=== PATIENT | male | born 1950 | race Caucasian/White ===

== ENCOUNTER → 2020-02-14 11:57 | Outpatient (CLI) | payer MEDICARE, SELFPAY ==
--- NOTE | ~2020-02-14 | XR_ITS ---
EXAMINATION: XR chest 2V EXAM DATE: 02/14/2020 12:15 INDICATION: R05 - Cough, worsening, chronic bronchitis TECHNIQUE: Frontal and lateral projections of the chest obtained and reviewed. Comparison is made to prior examination from 11/03/2017. FINDINGS: The lungs are clear. There are no pleural effusions. The cardiomediastinal silhouette is within normal limits. There is no pneumothorax suspected. The bones and soft tissues are unremarkab le. IMPRESSION: No acute cardiopulmonary findings. Reviewed, dictated and finalized at location B. [employer]PA[employer]
== END ==
PROVIDERS: Visit Provider Physician Assistant Medical
DX: R05 Cough (principal)
CPT/HCPCS: 71046

== ENCOUNTER 2020-02-18 12:50 | Outpatient (NON) | payer MEDICARE, SELFPAY ==
[2020-02-19 01:31] LABS: SARS-CoV-2 RNA PCR Positive
== END 2020-02-18 12:51 ==
PROVIDERS: PCP Family Medicine; Visit Provider Physician Assistant Medical
DX: U07.1 COVID-19 (principal)
CPT/HCPCS: 87635; C9803; U0003

== ENCOUNTER → 2021-01-23 09:34 | Outpatient (CLI) | payer MEDICARE, SELFPAY ==
[2021-01-23 16:22] LABS: SARS-CoV-2 RNA PCR Negative
== END ==
PROVIDERS: PCP Family Medicine; Visit Provider Family Medicine
DX: Z20.822 Contact with and (suspected) exposure to COVID-19 (principal); R05.9 Cough, unspecified; R52 Pain, unspecified; R09.81 Nasal congestion
CPT/HCPCS: C9803; U0003; U0005

== ENCOUNTER 2022-07-31 08:41 | Outpatient (CLI) | payer MEDICARE, SELFPAY ==
--- NOTE | ~2022-07-31 | XR_ITS ---
Clinical Indication: Chest tightness PA and lateral views of the chest: Comparison: 02/14/2020 Findings: The lungs are clear, without evidence of focal consolidation or pleural effusion. Cardiome diastinal silhouette is within normal limits. Bones and soft tissues are unremarkable. Impression: Normal chest. Reviewed, dictated and finalized at [facility]. Impression: Normal chest.
== END 2022-07-31 08:42 | disposition home or self-care (01) ==
LOC: ANHIMG 08:44
PROVIDERS: PCP Family Medicine; Visit Provider Family Medicine
DX: R06.09 Other forms of dyspnea (principal)
CPT/HCPCS: 71046

== ENCOUNTER 2022-08-30 07:42 | Outpatient (CLI) | payer MEDICARE, SELFPAY ==
--- NOTE | 2022-08-30 07:49 | ECHO_ITS ---
Patient Info Name: Abel Varner Age: 72 years : 1950 Gender: Male Ht: 71 in Wt: 180 lbs BSA: 2.03 m2 HR: 48 bpm BP: 133 / 78 mmHg Heart Rhythm: Bradycardia Technical Quality: Good Exam Date: 08/30/2022 8:18 AM Exam Location: [facility] Pulmonary Patient Status: Outpatient Admit Date: 08/30/2022 Staff Ordering Physician: Aniceto Cornelius MD Oracle Developer: Colette Spears RDCS Attending Provider: Aniceto Cornelius MD Referring Physician: Adryan PALMER; Exam Type: CA echo doppler color flow Study Info Indications R06.09 - Other forms of dyspnea Complete two-dimensional, color flow and Doppler transthoracic echocardiogram is performed. Summary 1. Complete two-dimensional, color flow and Doppler transthoracic echocardiogram is performed. 2. Left ventricular chamber dimension is normal. 3. Left ventricular systolic function is normal, estimated at 60-65%. 4. The left ventricular diastolic function is grade II diastolic dysfunction. 5. E/e' 9 is minimally elevated. 6. There is mild aortic valve sclerosis. 7. There is mild aortic valve regurgitation. 8. There is trace tricuspid valve regurgitation. 9. No pulmonary hypertension, estimated pulmonary arterial systolic pressure is 27 mmHg. 10. There is trace pulmonic regurgitation. Left Ventricle E/e' 9 is minimally elevated. Left ventricular chamber dimension is normal. Left ventricular systolic function is normal, estimated at 60-65%. The left ventricular diastolic function is grade II diastolic dysfunction. Right Ventricle Right ventricular systolic function is normal and with normal TAPSE 2.3 cm. Right ventricular chamber dimension is normal. Left Atria Left atrial chamber dimension is normal. Right Atria Right atrial chamber dimension is normal. Aortic Valve The aortic valve is trileaflet. There is mild aortic valve sclerosis. There is no aortic valve stenosis. There is mild aortic valve regurgitation. Pulmonic Valve There is trace pulmonic regurgitation. Mitral Valve There is no mitral valve stenosis. There is no mitral valve regurgitation. Tricuspid Valve There is trace tricuspid valve regurgitation. No pulmonary hypertension, estimated pulmonary arterial systolic pressure is 27 mmHg. Pericardium/Pleural There is no pericardial effusion. Inferior Vena Cava Normal inferior vena cava with >50% collapse upon inspiration consistent with normal right atrial pressure, 5 mmHg. Aorta The aortic root size at the sinus of Valsalva is normal. Left Ventricular Outflow Tract Name Value Normal LVOT 2D LVOT Diameter 2.0 cm LVOT Doppler LVOT Peak Gradient 3 mmHg LVOT Mean Gradient 1 mmHg LVOT VTI 22 cm LVOT VTI/AV VTI Ratio 0.6 LVOT Stroke Volume 73 ml LVOT CO 2.7 l/min LVOT CI 1.3 l/min/m2 Pulmonic Valve Name Value Normal RV
== END 2022-08-30 07:43 | disposition home or self-care (01) ==
PROVIDERS: PCP Family Medicine; Visit Provider Family Medicine
DX: R06.09 Other forms of dyspnea (principal); I35.1 Nonrheumatic aortic (valve) insufficiency
CPT/HCPCS: 93306

== ENCOUNTER 2022-09-26 11:35 | Emergency (ER) | payer MEDICARE, SELFPAY ==
--- NOTE | ~2022-09-26 | US_ITS ---
US soft tissue UE RT 09/26/2022 15:08 Indication: Right forearm bruising and swelling. Spider bite. Procedure: Limited ultrasound of the right forearm in the area of palpable and clinical concern Comparison: No prior studies for comparison. Findings: There is mild diffuse subcutaneous edema. No discrete walled off fluid collection to sugges t abscess. No abnormal solid or cystic masses. Impression: 1: No discrete abscess identified. Mild diffuse subcutaneous edema. Reviewed, dictated and finalized at location L. Impression: 1: No discrete abscess identified. Mild diffuse subcutaneous edema.
[2022-09-26 11:42] VITALS: BP 117/72; PULSE 71; RESP 18; O2SAT 98
[2022-09-26 11:49] VITALS: TEMP 36.6
[2022-09-26 14:52] LABS: Basophils Percent Auto 0.3 % (0.2-1.2); Eosinophils Absolute Auto 0.3 K/mm3 (0-0.3); Eosinophils Percent Auto 3.6 % (0-4.4); Hematocrit 46.6 % (42.0-52.0); Hemoglobin 15.1 g/dL (14.0-18.0); Immature Granulocyte Absolute 0.03 K/mm3 (0.00-0.031); Immature Granulocyte Percent A 0.4 % (0-0.5); Lymphocytes Absolute Auto 0.89 K/mm3 (0.9-3.2); Lymphocytes Percent Auto 12.2 % (18.3-44.2); Mean Corpuscular HGB Conc 32.4 g/dl (32-36); Mean Corpuscular Volume 95.7 fl (80-100); Mean Platelet Volume 9.2 fl (7.4-10.4); Monocytes Absolute Auto 0.5 K/mm3 (0.1-0.6); Monocytes Percent Auto 6.5 % (2.6-8.5); Neutrophils Absolute Auto 5.6 K/mm3 (1.3-6.7); Platelet Count Result 219 k/mm3 (150-375); Red Blood Count 4.87 M/mm3 (4.6-6.20); Red Cell Distribution Width 12.7 % (11.5-14.5); White Blood Count 7.3 K/mm3 (4.5-10.0)
--- NOTE | 2022-09-26 15:07 | ED.WOUNDLAC ---
HPI - Wound/Laceration General Chief Complaint: Wound/Laceration Stated Complaint: Spider bites Time Seen by Provider: 09/26/22 13:33 Source: patient Mode of arrival: ambulatory Limitations: no limitations History of Present Illness HPI narrative: Patient is a 72-year-old male who presents to the ED with report of a spider bite to his right mid forearm. Patient reports he was working on a house soffit yesterday and believes he was bitten by at least 1 brown recluse spider to his right mid forearm. He denies seeing any spiders or feeling a bite, he states he first just felt a area of burning pain to his right mid ventral forearm. He has since developed swelling and almost the appearance of bruising to the right forearm. He states he has been bitten by a brown recluse before and had similar sx's. He reports very mild nausea, denies vomiting, abdominal pain, fevers, drainage from the wound. Related Data Home Medications Medication Instructions Recorded Confirmed ascorbic acid (vitamin C) 1,000 mg 1 g PO DAILY 07/29/22 07/29/22 capsule coenzyme Q10 75 mg capsule (Ultra 75 mg PO DAILY 07/29/22 07/29/22 CoQ10) fluticasone propionate 50 1 spray intranasal DAILY 07/29/22 07/29/22 mcg/actuation nasal spray,suspension fpasqgat-lbo-tlriz acid 300 1 tablet PO DAILY 07/29/22 07/29/22 mcg-lycopene 600 mcg-lutein 300 mcg tablet (Centrum Silver Ultra Men's) omega 6-tgi-tix-fish oil 120 cap PO 07/29/22 07/29/22 mg-180 mg-500 mg capsule (Fish Oil) Allergies Allergy/AdvReac Type Severity Reaction Status Date / Time No Known Allergies Allergy Verified 09/26/22 11:47 Review of Systems Review of Systems: CONSTITUTIONAL: Denies fever, chills, or sweats. GASTROINTESTINAL: See HPI. SKIN: See HPI. MUSCULOSKELETAL: See HPI. NEUROLOGIC: Denies tingling, numbness, or weakness. All systems reviewed & are unremarkable except as noted in HPI and below PMFSH Past Medical History Medical History Adult BMI 27.0-27.9 kg/sq m Chest pain Dyspnea on exertion Erectile dysfunction Nasal congestion Skin lesion of scalp Family History Family History Father Hypertension Cerebrovascular accident Family history of lymphoma Mother Carcinoma of colon Family history of malignant neoplasm of breast in first degree relative Family history of malignant neoplasm of ovary Sibling No problems noted. Social History Social History Smoking status: Never smoker Second hand tobacco smoke exposure: No Alcohol intake: current Substance use: never Substance use type: does not use Living arrangements: alone Occupation/Education: retired Additional occupation/education comments: [employer] Gender identity (if verbalized by the patient): Male Exam Narrative: GENERAL: Well appearing, well-nourished, non-toxic, in no acute distress. HEAD: Normocephalic, atraumatic. NECK: Supple. No adenopathy, no masses. RESPIRATORY: Airway patent, respirations nonlabored. Clear to auscultation bilaterally, no rales, rhonchi, wheezing. CARDIOVASCULAR: Regular rate and rhythm without murmurs, rubs, or gallops. Radial pulses 2+ and equal bilaterally. MUSCULOSKELETAL: Moves all extremities. Strength/ROM intact without gross deformities. Full ROM of RUE. SKIN: Warm, dry. Area of swelling, redness, TTP to R mid ventral forearm. No fluctuance or induration appreciated. Small singular petechia in the center of the swollen region with surrounding serpiginous shaped ecchymosis with small areas of pale/blanching skin. No vesicles, drainage. No signs of necrosis. No sloughing or desquamation of skin. Small abrasions present over mid forearm. Mild lymphangitis extending up to the right mid upper arm. NEURO: A&O X3. Speech clear. Cranial nerves II-XII ben
[2022-09-26 15:22] LABS: Alanine Aminotransferase 24 U/L (6-50); Albumin Level 4.8 g/dL (3.5-5.1); Alkaline Phosphatase 63 U/L (38-126); Anion Gap 9 mmol/L (8-16); Aspartate Amino Transferase 39 U/L (17-59); Bilirubin,Total 1.3 mg/dL (0.2-1.3); Blood Urea Nitrogen 11 mg/dL (9-20); Calcium 9.4 mg/dL (8.4-10.2); Carbon Dioxide 28 mmol/L (22-30); Chloride 101 mmol/L (98-107); Estimated CRCL calculation 69 ml/min; Estimated Glomerular Filt Rate > 60; Glucose 88 mg/dL (65-110); Potassium 4.3 mmol/L (3.4-5.0); Sodium 138 mmol/L (137-145)
[2022-09-26] MEDS: ceFAZolin 1 GM/NS 50 ML 1 GM/50 ML BAG IVPB (16:45)
== END 2022-09-26 17:12 | disposition home or self-care (01) ==
PROVIDERS: Emergency Provider Physician Assistant; PCP Family Medicine
DX: L03.113 Cellulitis of right upper limb (principal)
CPT/HCPCS: 36415; 76882; 80053; 85025; 96365; 99284; J0690

== ENCOUNTER 2022-09-28 04:37 | Emergency (ER) | payer MEDICARE, SELFPAY ==
[2022-09-28 04:39] VITALS: BP 128/66; PULSE 54; RESP 18; TEMP 36.8; O2SAT 100
--- NOTE | 2022-09-28 05:12 | ED.GENADULT ---
HPI - General Adult General Chief complaint: Skin/Abscess/Foreign Body Stated complaint: cellutitis on antibiotic Time Seen by Provider: 09/28/22 04:58 History of Present Illness HPI narrative: Patient 72-year-old gentleman who presents the emergency department chief complaint of right forearm pain. The patient reports he was seen in the emergency department on after he had had what he believes to be is brown recluse bite. The patient states that he has had redness and swelling in the area and was started on Keflex. The patient states the area has become exquisitely painful and reports that the pain is not improved by anything. Patient states he was concerned that he was going into shock because of the pain Related Data Home Medications Medication Instructions Recorded Confirmed ascorbic acid (vitamin C) 1,000 mg 1 g PO DAILY 07/29/22 07/29/22 capsule coenzyme Q10 75 mg capsule (Ultra 75 mg PO DAILY 07/29/22 07/29/22 CoQ10) fluticasone propionate 50 1 spray intranasal DAILY 07/29/22 07/29/22 mcg/actuation nasal spray,suspension saqflnpq-lcx-nolod acid 300 1 tablet PO DAILY 07/29/22 07/29/22 mcg-lycopene 600 mcg-lutein 300 mcg tablet (Centrum Silver Ultra Men's) omega 7-uxr-msv-fish oil 120 cap PO 07/29/22 07/29/22 mg-180 mg-500 mg capsule (Fish Oil) Allergies Allergy/AdvReac Type Severity Reaction Status Date / Time No Known Allergies Allergy Verified 09/28/22 04:39 Review of Systems Review of Systems: A 10 system review of systems was completed on the patient and is negative except for what is stated in the HPI. Nursing and ancillary documentation was reviewed. [facility] Past Medical History Medical History Adult BMI 27.0-27.9 kg/sq m Chest pain Dyspnea on exertion Erectile dysfunction Nasal congestion Skin lesion of scalp Family History Family History Father Hypertension Cerebrovascular accident Family history of lymphoma Mother Carcinoma of colon Family history of malignant neoplasm of breast in first degree relative Family history of malignant neoplasm of ovary Sibling No problems noted. Social History Social History Smoking status: Never smoker Second hand tobacco smoke exposure: No Alcohol intake: current Substance use: never Substance use type: does not use Living arrangements: alone Occupation/Education: retired Additional occupation/education comments: [employer] Gender identity (if verbalized by the patient): Male Exam Narrative: GENERAL: Well-appearing, well-nourished, and in no acute distress. HEAD: Normocephalic, atraumatic. EYES: PERRLA and EOMI. ENT: Nares clear, no rhinorrhea or epistaxis. Mucous membranes moist. NECK: Supple. CHEST: Clear to auscultation. No respiratory distress. HEART: Regular rate and rhythm. No murmur heard. Normal peripheral pulses. ABDOMEN: Soft, nontender, nondistended, normal active bowel sounds. EXTREMITIES: Normal range of motion. No edema. SKIN: Warm, dry, there is redness present to the right forearm on the volar aspect. NEURO: No focal deficits. Alert and oriented x3. PSYCH: Normal mood and affect. Course Vital Signs Vital signs: Vital Signs Temperature 36.8 C 09/28/22 04:39 Pulse Rate 54 L 09/28/22 04:39 Respiratory Rate 18 09/28/22 04:39 Blood Pressure 128/66 09/28/22 04:39 Pulse Oximetry 100 09/28/22 04:39 Oxygen Delivery Room Air 09/28/22 04:39 Temperature 36.8 C 09/28/22 04:39 Pulse Rate 54 L 09/28/22 04:39 Respiratory Rate 18 09/28/22 04:39 Blood Pressure 128/66 09/28/22 04:39 Pulse Oximetry 100 09/28/22 04:39 Oxygen Delivery Room Air 09/28/22 04:39 Medical Decision Making MDM Narrative Medical decision making narrat
[2022-09-28] MEDS: CLINDAMYCIN 600 MG/D5W 50 ML 600 MG/50 ML PIGGYBACK 100 MG IVPB (05:38)
[2022-09-28] MEDS: MORPHINE SULFATE (*CRX) 4 MG/ML INJ IV PUSH (05:38)
[2022-09-28] MEDS: SODIUM CHLORIDE 0.9% IV 1,000 ML 999 ML IV CONT (05:38)
[2022-09-28 05:47] LABS: Basophils Percent Auto 0.2 % (0.2-1.2); Eosinophils Absolute Auto 0.5 K/mm3 (0-0.3); Eosinophils Percent Auto 7.8 % (0-4.4); Hematocrit 44.3 % (42.0-52.0); Hemoglobin 14.4 g/dL (14.0-18.0); Immature Granulocyte Absolute 0.02 K/mm3 (0.00-0.031); Immature Granulocyte Percent A 0.3 % (0-0.5); Lymphocytes Absolute Auto 0.93 K/mm3 (0.9-3.2); Lymphocytes Percent Auto 14.2 % (18.3-44.2); Mean Corpuscular HGB Conc 32.5 g/dl (32-36); Mean Corpuscular Hemoglobin 30.9 pg (26-34); Mean Corpuscular Volume 95.1 fl (80-100); Mean Platelet Volume 9.2 fl (7.4-10.4); Monocytes Absolute Auto 0.6 K/mm3 (0.1-0.6); Monocytes Percent Auto 8.4 % (2.6-8.5); Neutrophils Absolute Auto 4.5 K/mm3 (1.3-6.7); Neutrophils Percent Auto 69.1 % (45.5-73.1); Platelet Count Result 216 k/mm3 (150-375); Red Blood Count 4.66 M/mm3 (4.6-6.20); Red Cell Distribution Width 12.6 % (11.5-14.5); White Blood Count 6.5 K/mm3 (4.5-10.0)
[2022-09-28 06:06] LABS: Alanine Aminotransferase 21 U/L (6-50); Albumin Level 4.3 g/dL (3.5-5.1); Alkaline Phosphatase 66 U/L (38-126); Anion Gap 6 mmol/L (8-16); Aspartate Amino Transferase 26 U/L (17-59); Bilirubin,Total 0.7 mg/dL (0.2-1.3); Blood Urea Nitrogen 11 mg/dL (9-20); Calcium 9.1 mg/dL (8.4-10.2); Carbon Dioxide 31 mmol/L (22-30); Chloride 100 mmol/L (98-107); Estimated CRCL calculation 63 ml/min; Estimated Glomerular Filt Rate > 60; Glucose 90 mg/dL (65-110); Potassium 4.4 mmol/L (3.4-5.0); Sodium 137 mmol/L (137-145)
[2022-09-28 06:21] LABS: Procalcitonin 0.1 ng/mL
[2022-09-28] MEDS: KETOROLAC 30 MG/ML VIAL (*BKC) 15 MG IV PUSH (06:41)
[2022-09-28 06:54] VITALS: BP 142/80; PULSE 54; RESP 18; O2SAT 100
== END 2022-09-28 06:54 | disposition home or self-care (01) ==
PROVIDERS: Emergency Provider Emergency Medicine; PCP Family Medicine
DX: L03.113 Cellulitis of right upper limb (principal)
CPT/HCPCS: 36415; 80053; 84145; 85025; 96365; 96375; 99284; J1885; J2270; J7030

== ENCOUNTER 2022-10-01 07:48 | Observation (INO) | payer MEDICARE, SELFPAY ==
[2022-10-01] VITALS (22 sets, daily range): BP systolic 105–140; BP diastolic 59–86; PULSE 42–61; RESP 12–23; TEMP 36.6–37; O2SAT 85–100; BMI 26.9
--- NOTE | ~2022-10-01 | US_ITS ---
US soft tissue UE RT 10/01/2022 10:21 Indication: Concern for soft tissue abscess Procedure: High-resolution ultrasound of the right forearm in the area of palpable concern Comparison: Ultrasound dated 09/26/2022 Findings: There is improved mild subcutaneous edema compared with prior study. No discrete walled off fluid collection to suggest abscess. Impression: 1: No evidence for abscess. Reviewed, dictated and finalized at location L. Impression: 1: No evidence for abscess.
--- NOTE | 2022-10-01 09:33 | ED.WOUNDLAC ---
HPI - Wound/Laceration General Chief Complaint: Wound/Laceration Stated Complaint: wound right arm Time Seen by Provider: 10/01/22 09:01 History of Present Illness HPI narrative: 72-year-old male reports for evaluation for a potential spider bite to his right extremity with surrounding cellulitis extending up near the axilla. Patient was seen in the ED on 09/26 for a reported spider bite that occurred the day prior, arm pain, and mild nausea. He had an ultrasound obtained at that time which showed no discrete abscess identified, mild diffuse subcutaneous edema. He received 1 dose of IV cefazolin and was started on Keflex outpatient, advised to follow-up with PCP. He then returned 2 days later on 09/26 with worsening pain and no improvement in cellulitis. He was given a dose of IV clindamycin and sent home with p.o. clindamycin, advised to follow-up with PCP. Patient reports today with worsening pain and cellulitis to his axilla. He notes that the initial lesion on the ventral aspect of his forearm has remained stable other than increased surrounding erythema. He does note that he woke up with blood on his sheets the other morning and has noticed greasy drainage from the wound. States this morning his friends advised him to come to the ED after he developed symptoms of shock which included dizziness, lightheadedness, nausea. He denies known fevers, body aches or chills, cough or congestion, chest pain or shortness of breath, abdominal pain, nausea or vomiting, diarrhea. Related Data Home Medications Medication Instructions Recorded Confirmed ascorbic acid (vitamin C) 1,000 mg 1 g PO DAILY 07/29/22 10/01/22 capsule coenzyme Q10 75 mg capsule (Ultra 75 mg PO DAILY 07/29/22 10/01/22 CoQ10) fluticasone propionate 50 1 spray intranasal DAILY 07/29/22 10/01/22 mcg/actuation nasal spray,suspension qprgrind-izr-ddkiu acid 300 1 tablet PO DAILY 07/29/22 10/01/22 mcg-lycopene 600 mcg-lutein 300 mcg tablet (Centrum Silver Ultra Men's) omega 1-slb-pyv-fish oil 120 1 cap PO DAILY 07/29/22 10/01/22 mg-180 mg-500 mg capsule (Fish Oil) melatonin 12 mg tablet 12 mg PO HS 10/01/22 10/01/22 Allergies Allergy/AdvReac Type Severity Reaction Status Date / Time No Known Allergies Allergy Verified 10/01/22 13:41 Review of Systems Review of Systems: CONSTITUTIONAL: Denies fever, chills EYES: Denies visual changes, redness, or discharge. ENT: Denies rhinorrhea, congestion, sore throat, or otalgia. CARDIOVASCULAR: Denies chest pain, palpitations, or edema. RESPIRATORY: Denies cough or dyspnea. GASTROINTESTINAL: Denies abdominal pain, vomiting, or diarrhea. GENITOURINARY: Denies dysuria or hematuria. SKIN: See HPI MUSCULOSKELETAL: Denies back pain, joint pain, or myalgia. NEUROLOGIC: Denies headache, numbness, dizziness, or weakness. PSYCHIATRIC: Denies anxiety or depression. [facility] Past Medical History Medical History (Updated 10/01/22 @ 15:08 by Chasidy Issa NP) Adult BMI 27.0-27.9 kg/sq m Cataracts, bilateral Chest pain Chronic bronchitis Diastolic dysfunction Dyspnea on exertion Erectile dysfunction Ingrowing toenail with infection Mixed hyperlipidemia Nasal congestion Seasonal allergies Skin lesion of scalp Wart viral Surgical History Surgical History (Updated 10/01/22 @ 14:59 by Chasidy Issa NP) History of shoulder surgery Bilateral shoulder surgery Family History Family History Father Hypertension Cerebrovascular accident Family history of lymphoma Mother Carcinoma of colon Family history of malignant neoplasm of breast in first degree relative Family history of malignant neoplasm of ovary Sibling No problems noted. Social History Social History (Updated 10/01/22 @ 15:01 by Chasidy Issa NP) Social History: The patient lives home alone. He is single. He has no children. He tells me he works as
[2022-10-01 10:10] LABS: Basophils Percent Auto 0.4 % (0.2-1.2); Eosinophils Absolute Auto 0.7 K/mm3 (0-0.3); Eosinophils Percent Auto 6.5 % (0-4.4); Hematocrit 44.1 % (42.0-52.0); Hemoglobin 13.8 g/dL (14.0-18.0); Immature Granulocyte Absolute 0.04 K/mm3 (0.00-0.031); Immature Granulocyte Percent A 0.4 % (0-0.5); Lymphocytes Absolute Auto 1.47 K/mm3 (0.9-3.2); Lymphocytes Percent Auto 14.2 % (18.3-44.2); Mean Corpuscular HGB Conc 31.3 g/dl (32-36); Mean Corpuscular Hemoglobin 31.1 pg (26-34); Mean Corpuscular Volume 99.3 fl (80-100); Mean Platelet Volume 9.4 fl (7.4-10.4); Monocytes Absolute Auto 0.8 K/mm3 (0.1-0.6); Monocytes Percent Auto 7.7 % (2.6-8.5); Neutrophils Absolute Auto 7.4 K/mm3 (1.3-6.7); Neutrophils Percent Auto 70.8 % (45.5-73.1); Platelet Count Result 217 k/mm3 (150-375); Red Blood Count 4.44 M/mm3 (4.6-6.20); Red Cell Distribution Width 12.6 % (11.5-14.5); White Blood Count 10.4 K/mm3 (4.5-10.0)
[2022-10-01 10:18] LABS: Alanine Aminotransferase 19 U/L (6-50); Albumin Level 4.2 g/dL (3.5-5.1); Alkaline Phosphatase 59 U/L (38-126); Anion Gap 4 mmol/L (8-16); Aspartate Amino Transferase 26 U/L (17-59); Bilirubin,Total 0.6 mg/dL (0.2-1.3); Blood Urea Nitrogen 10 mg/dL (9-20); CRP 5.9 mg/dL (<1.0); Calcium 9.1 mg/dL (8.4-10.2); Carbon Dioxide 31 mmol/L (22-30); Chloride 101 mmol/L (98-107); Estimated CRCL calculation 77 ml/min; Estimated Glomerular Filt Rate > 60; Glucose 89 mg/dL (65-110); Potassium 4.6 mmol/L (3.4-5.0); Sodium 136 mmol/L (137-145)
[2022-10-01] MEDS: SODIUM CHLORIDE 0.9% IV 1,000 ML 999 ML IV CONT (10:21)
[2022-10-01] MEDS: HYDROcodone/acetaminophen (*CRX) 5-325 MG TABLET 1 TAB PO ×3 (10:23→21:12)
[2022-10-01 11:45] LABS: Erythrocyte Sedimentation Rate 72 mm/hr (0-20)
--- NOTE | 2022-10-01 12:36 | PM.IMHP ---
H&P: HPI History of Present Illness Date/Time: 10/01/22 12:36 Chief Complaint: right arm infection Narrative: This is a 72-year-old male patient who is fairly healthy. The patient was working outside on a 09/26/2022 when the he was working on the roof soft at outside when he noticed that he had gotten bit at least 3 times in he is pretty sure that it is a spider bite. The patient came to the emergency room here on 09/26/2022 for the reported spider bite that occurred that day the patient complained of redness and tenderness and edema that day. The patient received 1 dose of IV cephalexin and was started on Keflex to be taken outpatient. The patient was advised to follow-up with his primary care doctor. He then returned back here on 09/28/22 for the same chief complaint of right forearm pain. The patient stated that he did not have any relief of his symptoms when he took his Keflex. The patient stated that he was taking his per prescribed Keflex as ordered. He was then given IV clindamycin and sent home on p.o. clindamycin. The patient then returned to the emergency room today because his symptoms were worsening. He has redness swelling and tenderness. The redness is from his right forearm up to his axillary area. The patient stated that he had no drainage but he told the ER provider that he had a greasy drainage from the wound. He also has an area that is approximately 2 x 4 that appears darker than the rest of the arm. The patient stated that elevation does help it some. Patient stated that he was given pain pills which he would take when needed and that he took his last pain pill today. He stated that this morning he woke up and was out with some friends when he developed some dizziness, lightheadedness and nausea. He denied any fever chills or any body aches. vomiting or diarrhea today. His friends encouraged him to come to the emergency room today. His white count is noted to be 10.4. Sodium was 136. C reactive protein 5.9. The patient was given IV fluids, [place] and vancomycin. The patient is being admitted to observation status on the date of service of 10/01/2022. Review of Systems Review of Systems: All systems reviewed & are unremarkable except as noted in HPI and below Constitutional: Constitutional: Reports as per HPI and Reports no additional constitutional complaints Eyes: Eyes: Reports as per HPI and Reports no additional eye complaints ENT: Reports system reviewed and no additional complaints, except as documented and Reports Normal hearing present Cardiovascular: Cardiovascular: Reports no additional cardiovascular complaints Respiratory: Respiratory: Reports no additional respiratory complaints and Reports no additional respiratory complaints Gastrointestinal: Gastrointestinal: Reports as per HPI and Reports no additional gastrointestinal complaints Musculoskeletal: Musculoskeletal: Reports no additional musculoskeletal complaints Integumentary/Breasts: Skin/Breast: Reports system reviewed and no additional complaints, except as docu and Reports as per HPI Neurologic: Reports system reviewed and no additional complaints, except as documented, Reports as per HPI and Reports Normal hearing present Psychiatric: Psychiatric: Reports no additional psychiatric complaints and Reports as per HPI Endocrine: Endocrine: Reports no additional endocrine complaints Hematologic/Lymphatic: Hematologic/Lymphatic: Reports no additional hematologic/lymphatic complaints Allergic/Immunologic: Allergic/Immunologic: Reports no additional allergic/immunologic complaints [facility] Past Medical History Medical History (Updated 10/01/22 @ 15:08 by Chasidy Issa NP) Adult BMI 27.0-27.9 kg/sq m Cataracts, bilateral Chest pain Chronic bronchitis Diastolic dysfunction Dyspnea on exertion Erectile dysfunction Ingrowing toenail with infection Mixed hyperlipidemia Nasal congestion Seasonal allergies Skin lesion of scalp Wart vir
--- NOTE | 2022-10-01 13:28 | ADMGEN ---
This patient, Abel Varner, was admitted to [facility] Surg Room 304-02. Patient/family oriented to hospital policies and general routines including ID bracelet, bed and alarms, visiting hours, pain management, procedures, bathroom and other care routines, personal items, smoking policy, room service/diet, and visiting hours. Information on how to activate the Rapid Response Team has been discussed. Patient/Family are encouraged to report perceived risks to care and to ask questions if they do not understand what they are told or what they should do. report recieved from Linda in ER
[2022-10-01] MEDS: MELATONIN 3 MG TABLET 12 MG PO (21:13)
[2022-10-01] MEDS: KETOROLAC 15 MG/ML VIAL (*BKC) IV PUSH (22:19)
[2022-10-01] MEDS: HYDROmorphone HCL INJ (*CRX) 1 MG/ML SYR 0.5 MG IV PUSH (23:34)
[2022-10-02] MEDS: HYDROcodone/acetaminophen (*CRX) 5-325 MG TABLET 1 TAB PO ×4 (04:08→20:35)
[2022-10-02 06:00] VITALS: BP 123/66; PULSE 51; RESP 16; TEMP 37; O2SAT 99
[2022-10-02 07:13] LABS: Basophils Absolute Auto 0.1 K/mm3 (0.0-0.1); Basophils Percent Auto 0.7 % (0.2-1.2); Eosinophils Absolute Auto 0.8 K/mm3 (0-0.3); Eosinophils Percent Auto 11.5 % (0-4.4); Hematocrit 40.1 % (42.0-52.0); Hemoglobin 12.8 g/dL (14.0-18.0); Immature Granulocyte Absolute 0.02 K/mm3 (0.00-0.031); Immature Granulocyte Percent A 0.3 % (0-0.5); Lymphocytes Absolute Auto 1.68 K/mm3 (0.9-3.2); Lymphocytes Percent Auto 23.6 % (18.3-44.2); Mean Corpuscular HGB Conc 31.9 g/dl (32-36); Mean Corpuscular Hemoglobin 30.8 pg (26-34); Mean Corpuscular Volume 96.4 fl (80-100); Mean Platelet Volume 9.2 fl (7.4-10.4); Monocytes Absolute Auto 0.6 K/mm3 (0.1-0.6); Monocytes Percent Auto 8.7 % (2.6-8.5); Neutrophils Absolute Auto 3.9 K/mm3 (1.3-6.7); Neutrophils Percent Auto 55.2 % (45.5-73.1); Platelet Count Result 223 k/mm3 (150-375); Red Blood Count 4.16 M/mm3 (4.6-6.20); Red Cell Distribution Width 12.5 % (11.5-14.5); White Blood Count 7.1 K/mm3 (4.5-10.0)
[2022-10-02 07:26] LABS: Alanine Aminotransferase 18 U/L (6-50); Albumin Level 3.6 g/dL (3.5-5.1); Alkaline Phosphatase 51 U/L (38-126); Anion Gap 5 mmol/L (8-16); Aspartate Amino Transferase 20 U/L (17-59); Bilirubin,Total 0.4 mg/dL (0.2-1.3); Blood Urea Nitrogen 8 mg/dL (9-20); CRP 3.2 mg/dL (<1.0); Calcium 8.7 mg/dL (8.4-10.2); Carbon Dioxide 32 mmol/L (22-30); Chloride 100 mmol/L (98-107); Cholesterol 158 mg/dL (0-200); Estimated CRCL calculation 69 ml/min; Estimated Glomerular Filt Rate > 60; Glucose 81 mg/dL (65-110); HDL Direct 44 mg/dL; Magnesium 2.4 mg/dL (1.6-2.3); Potassium 4.1 mmol/L (3.4-5.0); Sodium 137 mmol/L (137-145); Triglycerides 89 mg/dL (<150)
[2022-10-02 07:35] LABS: LDL Cholesterol Direct 84 mg/dL
[2022-10-02] MEDS: OPTI-GEN TAB 1 TABLET PO (08:09)
[2022-10-02] MEDS: ASCORBIC ACID 500 MG TABLET 1000 MG PO (08:09)
[2022-10-02] MEDS: FLUTICASONE PROPIONATE 0.05% NA SPR 16 GM BTL (*BKC) 1 SPRAY NASAL (08:09)
[2022-10-02] MEDS: OMEGA 3 POLYUNSAT FATTY ACIDS 1 GM CAP PO (08:09)
[2022-10-02 09:07] LABS: Free T4 Free Thyroxine Reflex 1.24 ng/dL (0.78-2.19)
[2022-10-02 10:12] LABS: Total Triiodothyronine (T3) 1.34 NG/ML (0.97-1.69)
--- NOTE | 2022-10-02 10:31 | PM.IMPN ---
Progress Note: A&P Assessment and Plan (1) Cellulitis: Code(s): L03.90 - Cellulitis, unspecified Status: Acute Assessment and Plan: Patient presented to the ED on 09/26 after sustaining a spider bite to the right forearm. Right forearm US showing no abscess but mild difuse edema. He was tried on Keflex but his symptoms worsened so he returned to the ED on 09/28 and was given clindamycin. He continued to have worsening symptoms with tracking erythema so returns to ED again on 10/01. Repeat right forearm US showing no evidence of abscess. His white count was 10.4. CRP 5.9. He was started on Vancomycin. BCx are pending. Recommended patient stay in the hospital one ore night to continue IV abx. If this continues to improve, then home tomorrow to complete his Clindamycin regiment. Explained that this should heal over time but that there is still a possibility that the forearm lesion may become necrotic. He voices understanding and that this may need debridement later but would wait to see what tissue is viable before opening this area up especially since he is nontoxic and evidence of acute infection are waning. Continue to elevate the right forearm. Continue Vancomycin (2) Mixed hyperlipidemia: Code(s): E78.2 - Mixed hyperlipidemia Status: Acute Assessment and Plan: The patient only takes [id number] fish oil. TG 89, TC 158, LDL 84 and HDl 44. (3) Skin lesion of scalp: Code(s): L98.9 - Disorder of the skin and subcutaneous tissue, unspecified Status: Acute Assessment and Plan: The patient has an dried eschar to the top of his head without surrounding redness. Follow Plan DVT Prophylaxis - SCDs Code status - Full Subjective Date/time seen: 10/02/22 10:31 Interval history: 72yo male with chronic bronchitis here for persistent right arm pain, erythema and edema related to a spider bite on 09/26/22. Assuming care. Chart reviewed. Patient is noted that the pain is improved today. He is also decreasing edema to the right arm. He was having erythema tracking up to his axilla into his flank but this has improved. No numbness or tingling in his right fingers. No weakness in his right hand but did have trouble gripping because of pain. He does complain of small amount of numbness in the distal right forearm. Exam Narrative: AF 98.6 123/66 51 16 99% ra Gen - NARD Chest - CTA bilaterally, nml RR CV - RRR S1/S2 Abd - Soft, NT/ND, Positive BS Ext - No pedal edema Psych - Nml mood and affect Skin - right mid medial forearm approx 10cm oval purplish non-blanchable patch with induration but no fluctuance. No surrounding erythema. No erythema tracking into the right upper arm. No axillary lymphadenopathy. No erythema to the right axillary or flank area. Dried eschar to crown without erythema. Objective Data Vital Signs Vital Signs: Vital Signs - 24 hr 10/01/22 10:45 10/01/22 10:46 10/01/22 11:01 Temperature Pulse Rate 45 L 45 L 53 L Respiratory Rate 13 15 14 Blood Pressure 120/61 140/63 Pulse Oximetry 99 10/01/22 11:03 10/01/22 11:52 10/01/22 14:00 Temperature 97.9 F Pulse Rate 53 L 53 L 49 L Respiratory Rate 16 16 14 Blood Pressure 129/70 124/64 Pulse Oximetry 100 100 10/01/22 21:14 10/02/22 06:00 Temperature 98.6 F 98.6 F Pulse Rate 55 L 51 L Respiratory Rate 18 16 Blood Pressure 105/61 123/66 Pulse Oximetry 97 99 Intake/Output Intake/Output: Intake & Output 09/29/22 09/30/22 10/01/22 10/02/22 23:59 23:59 23:59 23:59 Intake Total 2110 1140 Balance 2110 1140 Meds/Results Medications: Active Medications Generic Name Dose Route Start Last Admin Trade Name Freq PRN Reason Stop Dose Admin Hydrocodone Bitart/Acetaminophen 1 tab 10/01/22 10:59 10/02/22 04:08 Hydrocodone/Acetaminophen (*Crx) 5-325 Mg Tablet PO 1 tab Q4H PRN Administration Pain Rated 4-6 Ascorbic Acid 1,000 mg
--- NOTE | 2022-10-02 12:50 | PCCCNOTE ---
On 10/02/22, the student, [Leah Miller], provided care and completed [facility] documentation on this patient. I have reviewed the student's documentation and agree with the findings.
[2022-10-02] MEDS: HYDROmorphone HCL INJ (*CRX) 1 MG/ML SYR 0.5 MG IV PUSH (13:04)
[2022-10-02 14:00] VITALS: BP 117/70; PULSE 50; RESP 18; TEMP 36.4; O2SAT 97
[2022-10-02 20:00] VITALS: PULSE 57; RESP 14; O2SAT 100
[2022-10-02] MEDS: MELATONIN 3 MG TABLET 12 MG PO (20:35)
[2022-10-02 21:43] VITALS: BP 129/69; PULSE 57; RESP 14; TEMP 37; O2SAT 100
[2022-10-03] MEDS: HYDROmorphone HCL INJ (*CRX) 1 MG/ML SYR 0.5 MG IV PUSH (02:00)
[2022-10-03 05:43] VITALS: BP 115/60; PULSE 62; RESP 14; TEMP 37.1; O2SAT 98
[2022-10-03 06:53] LABS: Estimated CRCL calculation 77 ml/min; Estimated Glomerular Filt Rate > 60
[2022-10-03] MEDS: ASCORBIC ACID 500 MG TABLET 1000 MG PO (08:37)
[2022-10-03] MEDS: FLUTICASONE PROPIONATE 0.05% NA SPR 16 GM BTL (*BKC) 1 SPRAY NASAL (08:38)
[2022-10-03] MEDS: OMEGA 3 POLYUNSAT FATTY ACIDS 1 GM CAP PO (08:38)
[2022-10-03] MEDS: OPTI-GEN TAB 1 TABLET PO (08:38)
--- NOTE | 2022-10-03 11:04 | PM.DS ---
DS: Admitting Diagnosis Discharge Date 10/03/22 Admitting Diagnosis Right arm pain DS: Discharge Diagnosis Discharge Diagnosis (1) Cellulitis: Code(s): L03.90 - Cellulitis, unspecified Status: Acute (2) Mixed hyperlipidemia: Code(s): E78.2 - Mixed hyperlipidemia Status: Acute (3) Skin lesion of scalp: Code(s): L98.9 - Disorder of the skin and subcutaneous tissue, unspecified Status: Acute DS: Summary Hospital Course Reason for hospitalization: 72yo male with chronic bronchitis here for persistent right arm pain, erythema and edema related to a spider bite on 09/26/22. Please see H&P for details. Hospital Course: Patient presented to the ED on 09/26 after sustaining a spider bite to the right forearm. Right forearm US showing no abscess but mild diffuse edema. He was given Keflex but his symptoms worsened so he returned to the ED on 09/28 and was given clindamycin. He continued to have worsening symptoms with tracking erythema so returns to ED again on 10/01 and was admitted. Repeat right forearm US showing no evidence of abscess. His white count was 10.4. CRP 5.9. He was started on Vancomycin. BCx were NGTD. He had clinical improvement with resolution of the tracking erythema. No axillary adenopathy. Right flank pain resolved. He had indurated, ecchymotic oval patch to his right forearm that improved by the time of discharge. Less painful. Explained that this should heal over time but that there is still a possibility that the forearm lesion may become necrotic. He voices understanding and that this may need debridement later but would wait to see what tissue is viable before opening this area up especially since he is nontoxic and evidence of improvement. He was having numbness to the distal right forearm/wrist that improved by the day of discahrge. For his HLD, the patient only takes gxqc-nsa-blbptbc fish oil. TG 89, TC 158, LDL 84 and HDl 44. The patient has an dried eschar to the top of his head without surrounding redness that was healing approrpiately. He overall did well and was able to be discharged home on 10/03/22. Advised to resume Clindamycin to complete the abx course. Side effects of Clinda including but not limited to CDiff was discussed. Status at Discharge Cognitive/behavioral status at discharge: stable Time Spent with Patient Time attestation: Total time spent providing and/or coordinating discharge services: 32 minutes Time spent: Greater than 30 minutes Exam Narrative: AF 98.8 115/60 62 14 98% ra Gen - NARD Chest - CTA bilaterally, nml RR CV - RRR S1/S2 Abd - Soft, NT/ND, Positive BS Ext - No pedal edema. 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 Psych - Nml mood and affect Skin - right mid medial forearm with oval purplish non-blanchable patch with underlying induration. No fluctuance and induration improved. No surrounding erythema. No tracking erythema. Dried eschar to crown without erythema or drainage. DS: Data Data Completed and Pending Labs on day of discharge: Labs from last 24 hours 10/03/22 05:42 Creatinine 0.80 Estim Creat Clear Calc 77 Estimated GFR > 60 Preliminary micro results at discharge 10/01/22 18:04 Blood Culture - Preliminary Blood 10/01/22 18:13 Blood Culture - Preliminary Blood Discharge Plan Discharge Attending physician on discharge: Alex Landis Consulting providers: Alla Mejia Discharging Clinician: Alex Landis Anticipated Discharge Date/Time: 10/03/22 11:13 Patient Disposition: Home, Self-Care Activity: as tolerated Diet: regular Discharge Instructions: Please complete your antibiotic course even if you are starting to feel well. Take precautions to avoid falls. Rise slowly from a lying or sitting position. Pause before standing or walking. Contact your doctor or call 911 and come to the Emergency Room if you fevers, rednes tracking up your arm, blackness noted to the ri
[2022-10-03] MEDS: ACETAMINOPHEN 325 MG TABLET 650 MG PO (11:49)
--- NOTE | 2022-10-08 10:16 | PC.NURSE ---
BLood cx are negative. Dr. Sabiha amaro.
== END 2022-10-03 12:05 | disposition home or self-care (01) ==
LOC: ANHED 09:44 → ANH3MEDSUR 10-02 09:09
PROVIDERS: Nurse Practitioner; Admitting Provider Family Medicine; Emergency Provider Physician Assistant; PCP Family Medicine; Visit Provider Internal Medicine
DX: L03.113 Cellulitis of right upper limb (principal); M79.601 Pain in right arm; R11.0 Nausea; I51.89 Other ill-defined heart diseases; R06.09 Other forms of dyspnea; E78.2 Mixed hyperlipidemia; L98.9 Disorder of the skin and subcutaneous tissue, unspecified; D72.829 Elevated white blood cell count, unspecified; R79.89 Other specified abnormal findings of blood chemistry; R70.0 Elevated erythrocyte sedimentation rate; Z79.891 Long term (current) use of opiate analgesic; Z79.899 Other long term (current) drug therapy
CPT/HCPCS: 36415; 76882; 80053; 80061; 82565; 83605; 83735; 84439; 84443; 84480; 85025; 85652; 86140; 87040; 96365; 96366; 96375; 96376; 99285; A9270; G0378; J1170; J1885; J3370; J7030

== ENCOUNTER 2022-11-28 10:08 | Outpatient (CLI) | payer MEDICARE, SELFPAY ==
--- NOTE | ~2022-11-28 | NM_ITS ---
EXAMINATION: NM stress w perf spect multi DATE: 11/28/2022 12:15 INDICATION: Other forms of dyspnea. TECHNIQUE: Rest images were obtained following intravenous administration of 9.2 mCi Tc99m tetrofosmi n (RegisterPatient). The patient performed an exercise activity. At peak exercise, 30 mCi Tc99m tetrofosmin ( Myoview) was administered intravenously, and stress images were obtained. Data was reconstructed into short axis and horizontal and vertical long axis SPECT images. Gated SPECT images were also obtained . COMPARISON: None. FINDINGS: There is no definite reversible or fixed perfusion abnormality to suggest ischemia or infar ction. There is no segmental wall motion abnormality. Left ventricular ejection fraction measures 6 7%. IMPRESSION: 1. No definite ischemia or infarct. 2. Normal left ventricular ejection fraction measuring 67%. Reviewed, dictated and finalized at location A.
--- NOTE | 2022-11-28 10:33 | EST_ITS ---
Patient Info Name: Abel Varner Age: 72 years : 1950 Gender: Male Ht: 72 in Wt: 190 lbs BSA: 2.10 m2 HR: 45 bpm BP: 104 / 84 mmHg Heart Rhythm: Sinus Rhythm Exam Date: 11/28/2022 11:18 AM Exam Location: [facility] Stress Patient Status: Outpatient Admit Date: 11/28/2022 Staff Ordering Physician: Denver Pa DO Attending Provider: Denver Pa DO Exercise Technologist: Mila Rizzo CT Exercise Physician: Denver Pa DO Exam Type: CA stress test treadmill w NM Study Info Indications R06.09 - Other forms of dyspnea A nuclear stress test was performed. Summary 1. 1. Negative Yimi exercise stress test for ischemic ST changes by ECG criteria. 2. 2. Good functional capacity, achieving 10 METs of workload. 3. 3. Baseline hypertension. 4. 4. Appropriate HR response to exercise. 5. 5. Appropriate HR recovery at 1 minute post exercise. 6. 6. Nuclear scan to follow and will be reported separately. Please correlate with it. 7. 7. Patient informed of the above results. Protocol: Yimi Stress ECG Details Stage: REST Duration (min): 1 min : 14 sec Speed (mph): 0.0 Grade (%): 0 HR (bpm): 43 SBP (mmHg): --- DBP (mmHg): --- METS: --- Stage: REST Duration (min): 9 min : 20 sec Speed (mph): 0.0 Grade (%): 0 HR (bpm): 48 SBP (mmHg): --- DBP (mmHg): --- METS: --- Stage: STAGE 1 Duration (min): 1 min : 0 sec Speed (mph): 1.7 Grade (%): 10 HR (bpm): 79 SBP (mmHg): --- DBP (mmHg): --- METS: --- Stage: STAGE 1 Duration (min): 2 min : 0 sec Speed (mph): 1.7 Grade (%): 10 HR (bpm): 89 SBP (mmHg): --- DBP (mmHg): --- METS: --- Stage: STAGE 1 Duration (min): 3 min : 0 sec Speed (mph): 1.7 Grade (%): 10 HR (bpm): 91 SBP (mmHg): 148 DBP (mmHg): 73 METS: --- Stage: STAGE 2 Duration (min): 1 min : 0 sec Speed (mph): 2.5 Grade (%): 12 HR (bpm): 95 SBP (mmHg): 148 DBP (mmHg): 73 METS: --- Stage: STAGE 2 Duration (min): 2 min : 0 sec Speed (mph): 2.5 Grade (%): 12 HR (bpm): 98 SBP (mmHg): 156 DBP (mmHg): 75 METS: --- Stage: STAGE 2 Duration (min): 3 min : 0 sec Speed (mph): 2.5 Grade (%): 12 HR (bpm): 93 SBP (mmHg): 156 DBP (mmHg): 75 METS: --- Stage: STAGE 3 Duration (min): 1 min : 0 sec Speed (mph): 3.4 Grade (%): 14 HR (bpm): 104 SBP (mmHg): 188 DBP (mmHg): 72 METS: --- Stage: STAGE 3 Duration (min): 2 min : 0 sec Speed (mph): 3.4 Grade (%): 14 HR (bpm): 115 SBP (mmHg): 188 DBP (mmHg): 72 METS: --- Stage: STAGE 3 Duration (min): 3 min : 0 sec Speed (mph): 3.4 Grade (%): 14 HR (bpm): 125 SBP (mmHg): 182 DBP (mmHg): 67 METS: --- Stage: RECOVERY Duration (min): 0 min : 59 sec Speed (mph): 0.0 Grade (%): 0 HR (bpm): 109 SBP (mmHg): 182 DBP (mmHg): 67 METS: --- Stage: RECOVERY Duration (min): 1 min : 59 sec Speed (mph): 0.0 Grade (
== END 2022-11-28 10:09 | disposition home or self-care (01) ==
LOC: ANHCARD 10:11
PROVIDERS: PCP Family Medicine; Visit Provider Internal Medicine Cardiovascular Disease
DX: I10 Essential (primary) hypertension (principal)
CPT/HCPCS: 78452; 93017; A9502

== ENCOUNTER 2024-03-29 15:11 | Outpatient (CLI) | payer MEDICARE, SELFPAY ==
--- NOTE | ~2024-03-29 | XR_ITS ---
EXAMINATION: XR chest 2V DATE: 03/29/2024 15:28 INDICATION: Bronchitis TECHNIQUE: PA and lateral views of the chest were obtained. COMPARISON: Chest radiograph dated 07/31/2022 FINDINGS: No interval change in subtle scattered thin linear atelectasis/scarring in the bilateral mid and lowe r lung zones. No new airspace opacities, pulmonary edema, pleural effusion or pneumothorax. The cardi omediastinal silhouette is normal. Suture anchors for likely rotator cuff repair at the right humeral head. IMPRESSION: 1. Stable appearance of chronic scattered mild linear atelectasis/scarring in the bilateral mid and l ower lung zones. No acute cardiopulmonary disease. Reviewed, dictated and finalized at location A. CH PATHOLOGY TEACHER IMPRESSION: 1. Stable appearance of chronic scattered mild linear atelectasis/scarring in t he bilateral mid and lower lung zones. No acute cardiopulmonary disease.
== END 2024-03-29 15:12 | disposition home or self-care (01) ==
PROVIDERS: PCP Family Medicine; Visit Provider Family Medicine
DX: J40 Bronchitis, not specified as acute or chronic (principal)
CPT/HCPCS: 71046

== ENCOUNTER 2025-01-06 07:36 | Outpatient (CLI) | payer MEDICARE, SELFPAY ==
--- OUTSIDE RECORDS SUMMARY | 2025-01-06 07:40 | XMS_ITS | Clinical Summary ---
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 Name Role Phone Unavailable Primary Care Provider Unavailabl e Social History Tobacco Use Types Packs/Day Years Used Date Smoking Tobacco: Never Assessed Sex and Gender Information Value Date Recorded Sex Assigned at Not on file Legal Sex Male 6:25 PM CDT Gender Identity Not on file Sexual Orientation Not on file Plan of Treatment Health Maintenance Due Date Last Done Comments Colorectal Cancer Screening Colonoscopy (10 Years) 1950 Hepatitis C 1968 DTaP, Tdap and Td Vaccines ( 1 - Tdap) 1969 Pneumococcal Vaccine: 50+ Ye ars (1 of 1 - PCV) 2000 Zoster Vaccines (1 of 2) 2000 COVID-19 Vaccine (1 - 2023-2 5 season) 2024 RSV Immunization or 60+ Years (1 - 1-dose 75+ series) 2025 Meningococcal B Vaccine Aged Out No l onger eligible based on patient's age to complete this topic Meningococcal Vaccine Aged Out No roya anna eligible based on patient's age to complete this topic RSV Immunizations Under 20 Months Aged Out No longer eligible based on patient's age to complete this topic
--- NOTE | 2025-01-06 07:58 | ECHO_ITS ---
Patient Info Name: Abel Varner Age: 74 years : 1950 Gender: Male Ht: 71 in Wt: 195 lbs BSA: 2.12 m2 HR: 50 bpm BP: 122 / 76 mmHg Technical Quality: Good Exam Date: 01/06/2025 8:16 AM Patient Status: O Admit Date: 01/06/2025 Exam Type: CA echo doppler color flow Complete two-dimensional, color flow and Doppler transthoracic echocardiogram is performed. Guard Range: Claire Zhang Attending Provider: Denver Pa DO Summary 1. Complete two-dimensional, color flow and Doppler transthoracic echocardiogram is performed. 2. Left ventricular chamber dimension is normal. 3. Left ventricular systolic function is normal, estimated at 60-65. 4. The left ventricular diastolic function is grade I diastolic dysfunction. 5. E/e' 5 is not elevated. 6. Right atrial chamber dimension is mildly enlarged. 7. There is moderate aortic valve sclerosis. 8. There is mild aortic valve regurgitation. 9. There is trace mitral valve regurgitation. 10. There is mild tricuspid valve regurgitation. 11. No pulmonary hypertension, estimated pulmonary arterial systolic pressure is 35 mmHg. Left Ventricle E/e' 5 is not elevated. Left ventricular chamber dimension is normal. Left ventricular systolic function is normal, estimated at 60-65. The left ventricular diastolic function is grade I diastolic dysfunction. Right Ventricle Right ventricular chamber dimension is normal. Right ventricular systolic function is normal and with normal TAPSE 2.3 cm. Left Atria Left atrial chamber dimension is normal. Right Atria Right atrial chamber dimension is mildly enlarged. Aortic Valve The aortic valve is trileaflet. There is moderate aortic valve sclerosis. There is no aortic valve stenosis. There is mild aortic valve regurgitation. Pulmonic Valve There is no pulmonic regurgitation. Mitral Valve There is no mitral valve stenosis. There is trace mitral valve regurgitation. Tricuspid Valve There is mild tricuspid valve regurgitation. No pulmonary hypertension, estimated pulmonary arterial systolic pressure is 35 mmHg. Pericardium/Pleural There is no pericardial effusion. Inferior Vena Cava Normal inferior vena cava with >50% collapse upon inspiration consistent with normal right atrial pressure, 5 mmHg. Aorta The aortic root size at the sinus of Valsalva is normal. Left Ventricular Outflow Tract Name Value Normal LVOT 2D LVOT Diameter 2.0 cm LVOT Doppler LVOT Peak Velocity 100 cm/s LVOT Peak Gradient 4 mmHg LVOT Mean Gradient 2 mmHg LVOT VTI 31 cm LVOT Stroke Volume 97 ml LVOT CO 4.3 l/min LVOT CI 2.0 l/min/m2 Pulmonic Valve Name Value Normal RVOT Doppler RVOT Peak Velocity 47 cm/s RVOT Peak Gradient 1 mmHg PV Doppler PV Peak Velocity 85 cm/s PV Peak Gradient 3 mmHg Mitral Valve Name Value Normal MV Diastolic Function MV E Peak Velocity 50 cm/s MV A Peak Velocity 64 cm/s MV E/A 0.8 MV Decel Time (PW) 193 ms MV Annular TDI MV E/e' (Septal) 8.1 MV E/e' (Lateral) 4.1 MV E/e' (Average) 6.1 Tricuspid Valve Name Value Normal TV Regurgitation Doppler TR Peak Velocity 275 cm/s TR Peak Gradient 30 mmHg Estimated PAP/RSVP RA Pressure 5 mmHg <=5 PA Systolic Pressure 35 mmHg <36 RV Systolic Pressure 35 mmHg <36 Aortic Valve Name Value Normal AV Doppler AV Peak Velocity 178 cm/s AV Peak Gradient 13 mmHg AV Area (Cont Eq Angel) 1.8 cm2 AV DI (Angel) 0.56 AV Regurgitation 2D LVOT Area 3.1 cm2 Ventricles Name Value Normal LV Dimensions 2D/MM IVS Diastolic Thickness (2D) 1.0 cm 0.6-1.0 LVID Diastole (2D) 5.4 cm 4.2-5.8 LVIW Diastolic Thickness (2D) 1.0 cm 0.6-1.0 LVID Systole (2D) 3.5 cm 2.5-4.0 LVOT Diameter 2.0 cm LV Mass (2D Cubed) 205.15 g 88.00-224.00 LV Mass Index (2D Cubed) 97 g/m2 49-115 Relative Wall Thickness (2D) 0.35 <=0.42 LV Fractional Shortening/Ejection Fraction 2D/MM LV Fractional Shortening (2D) 35 % 25-43 LV EF (2D Teichholz) 64 % LV Diastolic Volume (4C MOD) 156 ml LV EF (4C MOD) 57 % LV Diastolic Volume (2C MOD) 119 ml LV EF (2C MOD) 56 % LV Diastolic Volume (BP MOD) 139 ml 62-150 LV Diastolic Volume Index (BP MOD) 66 ml/m2 34-74 LV Systolic Volume (BP MOD) 66 ml 21-61 LV Systolic Volume Index (BP MOD) 31 ml/m2 11-31 LV EF (BP MOD) 52 % 52-72 LV Diastolic Length (4C) 8.4 cm LV Systolic Length (4C) 6.9 cm LV Stroke Volume (4C MOD) 90 ml Atria Name Value Normal LA Dimensions LA Volume (4C A-L) 45 ml LA Volume (BP A-L) 49 ml RA Dimensions RA Area (4C) 26.4 cm2 <=18.0 Report Signatures
== END 2025-01-06 07:37 | disposition home or self-care (01) ==
PROVIDERS: PCP Family Medicine; Visit Provider Internal Medicine Cardiovascular Disease
DX: R06.09 Other forms of dyspnea (principal); I34.0 Nonrheumatic mitral (valve) insufficiency; I35.1 Nonrheumatic aortic (valve) insufficiency; I36.1 Nonrheumatic tricuspid (valve) insufficiency
CPT/HCPCS: 93306